=== PATIENT | male | born 1985 | race Caucasian/White ===

== ENCOUNTER 2022-12-17 07:59 | Day surgery (SDC) | payer OTHER ==
[2022-12-16 09:18] VITALS: BMI 48.1
[~2022-12-17 07:59] MED LIST: LACTATED RINGERS 1,000 ML IV SCH
[2022-12-17 09:11] VITALS: RESP 16; TEMP 97.5
[2022-12-17] MEDS ORDERED: PROPOFOL 10 MG/ML 20 ML VIAL IV ONE (09:27)
--- NOTE | 2022-12-17 09:39 | P.PCN ---
Date of Procedure: 12/17/22 Procedure(s) Performed: BRIEF HISTORY: Patient is a 37-year-old pleasant white male scheduled for an elective colonoscopy as a part of evaluation of epigastric and left upper quadrant abdominal pain as well as chronic diarrhea bowel movements anywhere from 4-5 a day which are loose to watery in consistency. He was diagnosed with Crohn's disease at age 17 at [facility] in [place], but has not been on any maintenance medications since then. Lately has been having intermittent symptoms of abdominal pain and diarrhea. PROCEDURE PERFORMED: Colonoscopy with random biopsy. PREOPERATIVE DIAGNOSIS: Abdominal pain/chronic intermittent diarrhea and questionable history of Crohn's disease diagnosed at age 17. IV sedation per Anesthesia. PROCEDURE: After informed consent was obtained, the patient, was brought into the endoscopy unit. IV sedation was administered by Anesthesia under continuous monitoring. Digital rectal examination was normal. Initially the Olympus CF-160 flexible video colonoscope was then inserted in the rectum, gradually advanced into the cecum without any difficulty. Careful examination was performed as the scope was gradually being withdrawn. Ileocecal valve and the appendiceal orifice were visualized and appeared normal. Prep was excellent. Terminal ileum was intubated and 20 cm visualized and appeared normal. Biopsies were done from this area. Mucosa of the cecum, ascending colon, transverse colon, descending colon, sigmoid colon, and rectum appeared normal. Random biopsies were done from ascending and descending colon to rule out microscopic/collagenous colitis. In Retroflexion was performed in the rectum and no lesions were seen. The patient tolerated the procedure well. IMPRESSION: Normal-appearing colon from rectum to cecum with no emesis of colitis or colorectal neoplasia. Normal-appearing terminal ileum . RECOMMENDATIONS: Findings of this examination were discussed with the patientas well as his family. He was advised to follow with the biopsy results. His symptoms are more suggestive of irritable bowel syndrome and hence he will be started on dicyclomine 10 mg 3 times daily to be taken as needed based office in 4-6 weeks.].
[2022-12-17 09:59] VITALS: BP 110/70; PULSE 73
== END 2022-12-17 10:11 | disposition home or self-care (01) ==
LOC: ORWHC2ENDO 07:59
PROVIDERS: ATTEND Internal Medicine Gastroenterology
DX: K50.90 Crohn's disease, unspecified, without complications (principal); Z88.0 Allergy status to penicillin
CPT/HCPCS: 88305; 45380; J2704